=== PATIENT | female | born 1950 | race Caucasian/White ===

== ENCOUNTER 2022-01-07 23:58 | Emergency (ER) | payer MEDICARE, OTHER, SELFPAY ==
--- NOTE | ~2022-01-07 | CT_ITS ---
EXAMINATION: CT facial bones wo con DATE: 01/08/2022 01:50 INDICATION: Left maxillary swelling. Left upper dental pain for one day. TECHNIQUE: Computed tomography (CT) of the facial bones was performed without intravenous contrast. T he dose-length product was 394.94 mGy-cm. Automated exposure control and iterative reconstruction chris hnique were employed. COMPARISON: None FINDINGS: There is dental caries involving left maxillary canine with adjacent soft tissue swelling a nd stranding, consistent with infection. No abscess identified. There is mild mucosal thickening of t he maxillary and ethmoid sinuses. Small left mastoid effusion. Orbits are symmetric without disconjug ate gaze. No post septal soft tissue abnormalities. No significant cervical lymph node enlargement. IMPRESSION: 1. Odontogenic disease of the left maxillary canine with adjacent inflammation, consistent with infec tion. No discrete abscess identified, although contrast not administered. Reviewed, dictated and finalized at location A. IMPRESSION: 1. Odontogenic disease of the left maxillary canine with adjacent inflammation, consistent with infection. No discrete abscess identified, although contrast n ot administered.
[2022-01-08] VITALS (19 sets, daily range): BP systolic 153–203; BP diastolic 68–86; PULSE 54–78; RESP 13–25; TEMP 36.7; O2SAT 94–100
--- NOTE | 2022-01-08 00:16 | ED.DENTAL ---
HPI - Dental/Oral General Chief complaint: Unspecified Stated complaint: left upper dental pain Time Seen by Provider: 01/08/22 00:11 History of Present Illness HPI Narrative: 71-year-old female presents the emergency room for evaluation of left facial swelling and dental pain. Patient states that she noticed left side of her face swelling with increased pain and redness since yesterday. Patient also notes that she has dental tenderness to her left upper incisor. Patient states her teeth were recently cleaned and is receiving regular dental care. Patient also reports a low-grade fever. Related Data Home Medications Medication Instructions Recorded Confirmed atorvastatin 80 mg tablet 07/30/19 lisinopril 10 mg tablet 07/30/19 metformin 500 mg tablet mg 07/30/19 Allergies Allergy/AdvReac Type Severity Reaction Status Date / Time latex Allergy Mild RASH Verified 01/08/22 00:08 Review of Systems Review of Systems: CONSTITUTIONAL: Denies fever, chills, or sweats. EYES: Denies visual changes, redness, or discharge. ENT: Reports dental pain, facial swelling CARDIOVASCULAR: Denies chest pain, palpitations, or edema. RESPIRATORY: Denies cough or dyspnea. GASTROINTESTINAL: Denies abdominal pain, nausea, vomiting, or diarrhea. GENITOURINARY: Denies dysuria or hematuria. SKIN: Denies rash or itching. MUSCULOSKELETAL: Denies back pain, joint pain, or myalgia. NEUROLOGIC: Denies headache, numbness, dizziness, or weakness. PSYCHIATRIC: Denies anxiety or depression. Exam Narrative: GENERAL: Well-appearing, well-nourished, and in no acute distress. HEAD: Normocephalic, atraumatic. Erythema and tenderness over the left maxilla EYES: PERRLA and EOMI. ENT: Tenderness to the left upper incisor NECK: Supple. No adenopathy or masses. No carotid bruits or JVD CHEST: Clear to auscultation. No respiratory distress. No wheezes rales or rhonchi HEART: Regular rate and rhythm. No murmur heard. Normal peripheral pulses. EXTREMITIES: Normal range of motion. No edema. SKIN: Warm, dry, no rash. NEURO: No focal deficits. Alert and oriented x3. PSYCH: Normal mood and affect. Course Vital Signs Vital signs: Vital Signs Temperature 36.7 C 01/08/22 00:06 Pulse Rate 71 01/08/22 00:06 Respiratory Rate 18 01/08/22 00:06 Blood Pressure 202/84 H 01/08/22 00:06 Pulse Oximetry 98 01/08/22 00:06 Oxygen Delivery Room Air 01/08/22 00:06 Temperature 36.7 C 01/08/22 00:06 Pulse Rate 58 L 01/08/22 00:36 Respiratory Rate 16 01/08/22 00:36 Blood Pressure 192/68 H 01/08/22 00:36 Pulse Oximetry 98 01/08/22 00:36 Oxygen Delivery Room Air 01/08/22 00:36 MDM - Dental/Oral MDM Narrative Medical decision making narrative: 71-year-old patient presenting for dental pain 1-2 suspected dental carry versus recent dental exam. Patient is not immunocompromised, with patent airway. CT and odontogenic disease involving the left maxillary canine with some soft tissue swelling of the left side of the face. No abscess. No evidence of a tooth fracture, avulsion or bleeding socket. No evidence of Ludewig's angina, periapical abscess. Instructed patient to continue taking Tylenol and naproxen until you see the dentist. Will patient was given IV clindamycin, and will discharge patient home with p.o. clindamycin and follow-up with a dentist. Lab Data Result diagrams: 01/08/22 00:44 01/08/22 00:44 Labs: Lab Results 01/08/22 01/08/22 01/08/22 Range/Units 00:44 00:44 00:44 WBC 11.2 H (4.5-10.0) K/mm3 RBC 4.06 L (4.2-5.4) M/mm3 Hgb 12.1 (12.0-15.0) g/dL Hct 36.3 L (37.0-47.0) % MCV 89.4 (80-100) fl MCH 29.8 (26-34) pg MCHC 33.3 (32-36) g/dl RDW 12.9 (11.5-14.5) % Plt Count 199 (150-375) k/mm3 MPV 11.2 H (7.4-10.4) fl Immature Gran % (Auto) 0.4 (0-0.5) % Neut % (Auto) 76.9 H (45.5-73.1) % Lymph % (Auto) 14.3 L (18.3-44.2)
[2022-01-08 00:56] LABS: Basophils Percent Auto 0.4 % (0.2-1.2); Eosinophils Absolute Auto 0.1 K/mm3 (0-0.3); Eosinophils Percent Auto 0.5 % (0-4.4); Hematocrit 36.3 % (37.0-47.0); Hemoglobin 12.1 g/dL (12.0-15.0); Immature Granulocyte Absolute 0.04 K/mm3 (0.00-0.031); Immature Granulocyte Percent A 0.4 % (0-0.5); Lymphocytes Percent Auto 14.3 % (18.3-44.2); Mean Corpuscular HGB Conc 33.3 g/dl (32-36); Mean Corpuscular Hemoglobin 29.8 pg (26-34); Mean Corpuscular Volume 89.4 fl (80-100); Mean Platelet Volume 11.2 fl (7.4-10.4); Monocytes Absolute Auto 0.8 K/mm3 (0.1-0.6); Monocytes Percent Auto 7.5 % (2.6-8.5); Neutrophils Absolute Auto 8.6 K/mm3 (1.3-6.7); Neutrophils Percent Auto 76.9 % (45.5-73.1); Platelet Count Result 199 k/mm3 (150-375); Red Blood Count 4.06 M/mm3 (4.2-5.4); Red Cell Distribution Width 12.9 % (11.5-14.5); White Blood Count 11.2 K/mm3 (4.5-10.0)
[2022-01-08 01:13] LABS: Alanine Aminotransferase 28 U/L (6-35); Albumin Level 4.3 g/dL (3.5-5.1); Alkaline Phosphatase 85 U/L (38-126); Anion Gap 5 mmol/L (8-16); Aspartate Amino Transferase 22 U/L (14-36); Bilirubin,Total 1.1 mg/dL (0.2-1.3); Blood Urea Nitrogen 14 mg/dL (7-17); Calcium 9.1 mg/dL (8.4-10.2); Carbon Dioxide 26 mmol/L (22-30); Chloride 109 mmol/L (98-107); Estimated CRCL calculation 41 ml/min; Estimated Glomerular Filt Rate 55; Glucose 148 mg/dL (65-110); Potassium 3.9 mmol/L (3.4-5.0); Sodium 140 mmol/L (137-145)
[2022-01-08 01:14] LABS: Lactic Acid Reflex 0.8 mmol/L (0.7-2.0)
[2022-01-08] MEDS: hydrALAZINE HCL 20 MG/ML VIAL 10 MG IV PUSH ×2 (01:56→02:51)
[2022-01-08] MEDS: CLINDAMYCIN 600 MG/D5W 50 ML 600 MG/50 ML PIGGYBACK 100 MG IVPB (01:57)
[2022-01-08] MEDS: KETOROLAC 30 MG/ML VIAL (*BKC) IV PUSH (02:52)
== END 2022-01-08 03:15 | disposition home or self-care (01) ==
PROVIDERS: Emergency Provider Nurse Practitioner Family; PCP Nurse Practitioner Adult Health
DX: L03.211 Cellulitis of face (principal); Z79.84 Long term (current) use of oral hypoglycemic drugs; K02.9 Dental caries, unspecified
CPT/HCPCS: 36415; 70486; 80053; 83605; 85025; 96365; 96375; 96376; 99284; J0360; J1885